=== PATIENT | female | born 1960 | race Caucasian/White ===

== ENCOUNTER → 2017-05-29 | Outpatient (CLI) | payer OTHER ==
--- NOTE | 2017-05-29 13:25 | REP ---
Digital diagnostic unilateral right breast mammography with CAD and focused right breast sonography: History: Palpable lump 1/2 cm firm at 3 o'clock position found on clinical breast examination. Comparison mammography June 07, 2016, June 24, 2015 and May 13, 2014. Mammographic findings: A skin marker is affixed to the skin at the site of the palpable lump. Routine views of the right breast are augmented by magnified focal spot compression CC, MLO and nonmagnified true ML views. These demonstrate a somewhat spiculated soft tissue nodule at the site of the palpable lump in the right breast measuring 1.1 cm in diameter. The breast parenchyma is heterogeneously quite dense in a pattern which may inhibit the sensitivity of mammography. No microcalcification is seen. No other mass lesion is observed. No worrisome skin change. Sonographic findings: The right breast is examined at the site of the palpable lump at 9 o'clock in the right lateral mid breast. This shows a hypoechoic complex predominantly solid lesion measuring 8 x 7 x 8 mm located 6.5 cm from the nipple. There is internal Doppler flow. On some images, the lesion is taller than wide. There is minimal acoustic shadowing. Impression: BIRADS category 5 highly suspicious right breast mammogram. A spiculated mass lesion is seen at the site of the palpable lump at 9 o'clock in the right breast. Histologic sampling is recommended. Ultrasound-guided needle biopsy could be performed. BI-RADS/ACR category 5 mammogram. Highly suggestive of malignancy - appropriate action should be taken. Requires biopsy or surgical treatment. This mammogram was interpreted with the aid of an FDA-approved computer-aided detection system. The patient states she had a clinical breast exam in May 2017 The patient letter being requested is M4. Signed by Rafael Porras MD 05/29/2017 02:31 P
== END ==
LOC: M RAD 09:04
PROVIDERS: ATTEND Physician Assistant
DX: N63 Unspecified lump in breast (principal)

== ENCOUNTER 2017-06-20 11:40 | Outpatient (RCR) | payer OTHER | END 2017-07-11 | LOC: M PT 11:40 | PROVIDERS: ATTEND Surgery | DX: Z51.89 Encounter for other specified aftercare (principal); C50.512 Malignant neoplasm of lower-outer quadrant of left female breast ==

== ENCOUNTER → 2017-07-30 | Outpatient (CLI) | payer OTHER ==
--- NOTE | 2017-07-31 07:15 | RADONC ---
RADIATION ONCOLOGY CONSULTATION NOTE DATE: 07/30/2017 DIAGNOSIS: Right breast cancer STAGE: I A, [id number]. ECOG PERFORMANCE STATUS: 0. CONSULTATION NOTE: Ms. Zayas is a delightful, 57-year-old white female with the diagnosis of what appears to be a stage I A, [id number], well-differentiated infiltrating ductal carcinoma of the right breast who is presenting to us today status post lumpectomy and sentinel lymph node biopsy for consideration of postoperative radiation therapy for conservative breast management. HISTORY OF PRESENT ILLNESS: The patient was in the usual state of health until her primary care physician noticed a small lump in the upper outer quadrant of her right breast. The patient subsequently underwent a mammogram on 05/29/2017 which showed a highly suspicious spiculated lesion in the 9 o'clock position of the right breast. On 07/01/2017, the patient underwent lumpectomy and sentinel lymph node biopsy. Pathology revealed a 1.1 cm well-differentiated infiltrating ductal carcinoma. A total of 5 sentinel lymph nodes were sampled and were negative for malignancy. All margins of resection were negative. The tumor was estrogen receptor and progesterone receptor positive. Oncotype testing was done and a recurrence score result was 3. She is at a very low risk for distant recurrence. She is now presenting for consideration of postoperative radiation therapy for conservative breast management. PAST MEDICAL HISTORY: The patient's past medical history is positive for depression and anxiety. She also is perimenopausal. ALLERGIES: The patient is allergic to SULFA drugs. She is also allergic to LUNESTA. SOCIAL HISTORY: The patient does not smoke cigarettes. She drinks alcohol socially. FAMILY HISTORY: The patient's family history is positive for a mother with breast cancer and a paternal grandfather with pancreas cancer. REVIEW OF SYSTEMS: The patient's review of systems is positive for some anxiety as well as occasional depression, but is otherwise noncontributory. She denies standard review of systems. PHYSICAL EXAMINATION: The patient is a well-developed, well-nourished, 57-year-old woman in no acute distress. HEENT exam is normocephalic, atraumatic. Extraocular movements are intact. There is no palpable cervical, supraclavicular, infraclavicular, axillary, or inguinal lymphadenopathy present. Lungs are clear to auscultation and percussion. Heart has a regular rate and rhythm. Abdomen is benign with no hepatosplenomegaly, masses, or tenderness. Breast examination reveals no masses or discharge bilaterally. Skeletal examination reveals no tenderness to pressure or percussion of the bony skeleton. Extremities reveal no clubbing, cyanosis, or edema. Neurologic exam is grossly intact, as is the remainder of the physical examination. ASSESSMENT: Clearly, the patient is a candidate for external beam radiation therapy and I so informed her. I have discussed with the patient in detail the potential benefits as well as possible acute and chronic sequelae of external beam radiation therapy. We have discussed logistics of treatment planning, simulation and subsequent fractionated daily radiation treatments. I have scheduled the patient for the next available simulation slot and radiation treatments will begin subsequently. Thank you for allowing us to participate in the care of this very pleasant woman. If I could be of any further assistance or I could provide you with any information, please feel free to contact me anytime. As always warm regards. cc: Nadiya Gauthier MD, FACP Naz Contreras, MARK-C Andres Alonso MD [facility] [place] DIVISIONKarla
--- NOTE | 2017-09-11 07:51 | RADONC ---
RADIATION ONCOLOGY PROGRESS NOTE DATE: 09/09/2017 CHART NUMBER: [id number] Ms. Zayas is presently at a dose of 3600 cGy to her right breast and is tolerating treatments quite well at this point with no significant difficulties related to her radiation therapy other than some tenderness of the skin. REVIEW OF SYSTEMS: The patient's review of systems is positive for skin tenderness but is otherwise noncontributory. Denies nausea, vomiting, fevers, chills, night sweats, diplopia, headaches, anxiety or depression, anorexia, weight loss, visual disturbances, chest pain, urinary or bowel difficulties, bone pain, or neurological problems. PHYSICAL EXAMINATION: The patient's skin shows some erythema and tanning present, but overall is in good condition with no evidence of moist or dry desquamation. The remainder of her physical exam remains unchanged. Ms. Zayas is tolerating treatments quite well and radiation will continue as scheduled.
== END ==
LOC: M ONCR 08:56
PROVIDERS: ATTEND Radiology Radiation Oncology
DX: C50.919 Malignant neoplasm of unspecified site of unspecified female breast (principal)

== ENCOUNTER 2017-08-05 10:15 | Outpatient (RCR) | payer OTHER ==
--- NOTE | 2017-08-05 11:19 | RADONC ---
RADIATION ONCOLOGY SIMULATION NOTE DATE: 08/05/2017 CHART NUMBER: [id number] Ms. Zayas was taken to the CT scan for CT simulation of her right breast field. CT was accomplished without difficulty or discomfort. Radiation treatment planning is underway, and radiation treatments will begin subsequently. An immobilization device was created and will be used throughout the course of treatment. It was also created without difficulty or discomfort. I was physically present throughout the course of CT simulation.
== END 2017-08-10 ==
LOC: M ONCR 10:15
PROVIDERS: ATTEND Radiology Radiation Oncology
DX: C50.411 Malignant neoplasm of upper-outer quadrant of right female breast (principal)

== ENCOUNTER → 2017-08-05 | Outpatient (CLI) | payer OTHER | LOC: M RAD 10:04 | PROVIDERS: ATTEND Radiology Radiation Oncology | DX: C50.919 Malignant neoplasm of unspecified site of unspecified female breast (principal) ==

== ENCOUNTER → 2017-08-07 | Outpatient (REF) | payer OTHER | LOC: M SFHCADAM 10:24 | PROVIDERS: ATTEND Physician Assistant | DX: N92.0 Excessive and frequent menstruation with regular cycle (principal) ==

== ENCOUNTER → 2017-08-08 | Outpatient (CLI) | payer OTHER ==
--- NOTE | 2017-08-09 09:27 | DEXA ---
AP SPINE L1 - L4 0.792 -3.3 -2.1 LT FEMUR TOTAL 0.699 -2.4 -1.6 RT FEMUR TOTAL 0.635 -3.0 -2.1 TOTAL BODY TOTAL OTHER DUAL FEMUR FRAX* ASSESSMENT Risk factors: None done. 10 year probability of fracture Major osteoporotic fracture % Hip fracture % COMMENTS: There is osteoporosis of the spine. The density of the spine has decreased 1.0% since 06/24/2015. The density of the left hip has decreased 3.3% since 06/24/2015. The density of the right hip has decreased 4.2% since 06/24/2015. The decreased density of the spine does not represent a significant change. The decreased density of the left hip does represent a significant change. The decreased density of the right hip does represent a significant change. FOLLOW-UP: Recommendation for the next bone density exam: 2 years. MARTITA
== END ==
LOC: M WHC 10:52
PROVIDERS: ATTEND Internal Medicine Medical Oncology
DX: M85.9 Disorder of bone density and structure, unspecified (principal); Z79.899 Other long term (current) drug therapy

== ENCOUNTER 2017-09-11 14:04 | Outpatient (RCR) | payer OTHER ==
--- NOTE | 2017-09-18 06:20 | RADONC ---
RADIATION ONCOLOGY SIMULATION NOTE DATE: 09/16/2017 CHART NUMBER: [id number] Ms. Zayas was taken to the linear accelerator today for clinical setup of her electron beam right breast boost. Setup was accomplished without difficulty or discomfort. Radiation treatment planning is underway. An immobilization device will be used throughout the course of treatment and was constructed today. I was physically present throughout the course of simulation.
--- NOTE | 2017-09-18 06:29 | RADONC ---
RADIATION ONCOLOGY PROGRESS NOTE DATE: 09/16/2017 CHART NUMBER: [id number] Ms. Zayas is presently at a dose of 4500 cGy to her right breast and is tolerating treatments quite well at this point with no significant difficulties related to her radiation therapy other than skin discomfort, specifically in the inframammary region. REVIEW OF SYSTEMS: The patient's review of systems is noncontributory. Denies nausea, vomiting, fevers, chills, night sweats, diplopia, headaches, anxiety or depression, anorexia, weight loss, visual disturbances, chest pain, urinary or bowel difficulties, bone pain, or neurological problems. PHYSICAL EXAMINATION: The patient's skin shows erythema and tanning present throughout the treated field. In the inframammary area, there is a small area of moist desquamation. The remainder of physical exam remains unchanged. ASSESSMENT: The patient is tolerating her treatments fairly well. There is an area of desquamation, but she only has two fractions of radiation left to that area. She will then go on to the skin boost which is not in an area of desquamation. She has decided to continue with current therapy at this time without a break.
--- NOTE | 2017-09-24 08:00 | RADONC ---
RADIATION ONCOLOGY PROGRESS NOTE DATE: 09/23/2017 CHART NUMBER: [id number] Ms. Zayas is presently at a dose of 5460 cGy to her right breast primary site and is tolerating treatments quite well at this point with no complaints related to her radiation therapy. She is having no breast or bone pain. REVIEW OF SYSTEMS: The patient's review of systems is noncontributory. Denies nausea, vomiting, fevers, chills, night sweats, diplopia, headaches, anxiety or depression, anorexia, weight loss, visual disturbances, chest pain, urinary or bowel difficulties, bone pain, or neurological problems. PHYSICAL EXAMINATION: The patient's skin is in good condition with just a small area of desquamation in the inframammary region. The remainder of her physical exam remains unchanged. Ms. Zayas is tolerating treatments quite well and radiation will continue as scheduled.
--- NOTE | 2017-09-28 14:56 | RADONC ---
RADIATION ONCOLOGY TREATMENT SUMMARY DATE: 09/27/2017 CHART NUMBER: [id number]. DIAGNOSIS: Right breast cancer. STAGE: IA, [id number]. ECOG PERFORMANCE STATUS: Zero. TREATMENT SUMMARY: Ms. Zayas is a very pleasant, 57-year-old white female with the diagnosis of a stage IA, [id number], well-differentiated infiltrating ductal carcinoma of the right breast who presented to us for consideration of postoperative radiation therapy for conservative breast management. We treated the patient to the right breast for a total dose of 4860 cGy delivered in 27 fractions of 180 cGy each over 37 elapsed days from 08/12/2017 through 09/18/2017. The patient's right breast was treated on a linear accelerator utilizing a 6MV photon beam via medial and lateral tangential montemayor utilizing 3-D conformal technique. Following completion of 4860 cGy, the entire right breast, the primary site was boosted for an additional 1200 cGy delivered in 6 fractions of 200 cGy each from 09/19/2017 through 09/27/2017. The primary site boost was treated on a linear accelerator utilizing a 9MVE electron beam prescribed to the 90% isodose line via non phos technique. This brought the primary site to a total dose of 6060 cGy delivered in 33 fractions over 46 elapsed days from 08/12/2017 through 09/27/2017. Ms. Zayas tolerated her treatments quite well and was able complete therapy as prescribed without interruption. I have scheduled the patient to see me again in 1 month for further followup. She will also continue to be followed by her other physicians as well. cc: Nadiya Gauthier MD, FACP GEN Castano MD
== END 2017-10-10 ==
LOC: M ONCR 14:04
PROVIDERS: ATTEND Radiology Radiation Oncology
DX: C50.411 Malignant neoplasm of upper-outer quadrant of right female breast (principal)

== ENCOUNTER → 2018-06-30 | Outpatient (REF) | payer OTHER ==
[2018-06-30 12:09] LABS: TOTAL 25(OH) VITAMIN D 21.6 NG/ML (30.0-100.0)
[2018-06-30 12:21] LABS: CHOLESTEROL LEVEL 219 MG/DL (<200); FREE T4 0.83 NG/DL (0.76-1.46); HDL CHOLESTEROL 50 MG/DL (>40); LDL CHOLESTEROL 151.4 MG/DL (<100); NON-HDL-C 169 MG/DL; TRIGLYCERIDES LEVEL 88 MG/DL (<150)
== END ==
LOC: M LABDRAW1 10:48
DX: M81.0 Age-related osteoporosis without current pathological fracture (principal); Z13.220 Encounter for screening for lipoid disorders; C50.911 Malignant neoplasm of unspecified site of right female breast; E55.9 Vitamin D deficiency, unspecified
CPT/HCPCS: 84443

== ENCOUNTER → 2019-07-07 | Outpatient (REF) | payer OTHER ==
[~2019-07-07] MED LIST: ALEN70TA74 PO; CALC1TAB8 PO; CHOL100012 PO; LETR2.5T2 PO; SERT-138 PO; UNIS25TA3 PO; VITA400C67 PO
[2019-07-07 12:54] LABS: HEMATOCRIT 43.3 % (36.0-47.0); HEMOGLOBIN 13.8 g/dl (12.0-15.5); MEAN CORPUSCULAR HEMOGLOBIN 29.6 pg (27.0-33.0); MEAN CORPUSCULAR HGB CONC 31.9 g/dl (32.0-36.5); MEAN CORPUSCULAR VOLUME 92.9 fl (80.0-96.0); PLATELET COUNT, AUTOMATED 195 10^3/uL (150-450); RED BLOOD COUNT 4.66 10^6/uL (4.00-5.40); WHITE BLOOD COUNT 6.5 10^3/uL (4.0-10.0)
[2019-07-07 13:47] LABS: ALBUMIN 4.1 GM/DL (3.2-5.2); ALT/SGPT 20 U/L (12-78); BILIRUBIN,TOTAL 0.3 MG/DL (0.2-1.0); BLOOD UREA NITROGEN 24 MG/DL (7-18); CALCIUM LEVEL 9.5 MG/DL (8.8-10.2); CARBON DIOXIDE LEVEL 31 MEQ/L (21-32); CHLORIDE LEVEL 105 MEQ/L (98-107); CHOLESTEROL LEVEL 236 MG/DL (<200); CHOLESTEROL RISK RATIO 4.627 (<5); FREE T4 0.85 NG/DL (0.76-1.46); GLOMERULAR FILTRATION RATE > 60.0 (>45); GLUCOSE, FASTING 92 MG/DL (70-100); HDL CHOLESTEROL 51 MG/DL (>40); LDL CHOLESTEROL 157 MG/DL (<100); NON-HDL-C 185 MG/DL; POTASSIUM SERUM 4.3 MEQ/L (3.5-5.1); SODIUM LEVEL 142 MEQ/L (136-145); TOTAL 25(OH) VITAMIN D 33.2 NG/ML (30.0-100.0); TOTAL PROTEIN 7.4 GM/DL (6.4-8.2); TRIGLYCERIDES LEVEL 140 MG/DL (<150)
== END ==
LOC: M SFHCADAM 11:22
PROVIDERS: ATTEND Physician Assistant
DX: M81.0 Age-related osteoporosis without current pathological fracture (principal); C50.911 Malignant neoplasm of unspecified site of right female breast; F32.9 Major depressive disorder, single episode, unspecified; E78.5 Hyperlipidemia, unspecified

== ENCOUNTER → 2019-07-14 | Outpatient (CLI) | payer OTHER ==
[~2019-07-14] MED LIST changes: +ISOVUE-370 76% 100ML VIAL (Q9967) As Ordered ONE
--- NOTE | 2019-07-14 10:50 | REP ---
Soft-tissue neck CT study with IV contrast: History: Nodule. Firm, nontender, mobile, 1 cm nodule palpable on the right anterior cervical area. No comparison imaging. CT contrast dose: 75 mL of intravenous Isovue [address] technique: An opaque BB is affixed to the skin at the site of the palpable abnormality. Helical scanning is acquired. 3 mm axial images are generated and coronal and sagittal MPR images are generated. CT findings: The paranasal sinuses are clear. No intraorbital abnormality is seen. Visualized intracranial structures are unremarkable. No vascular abnormality is seen. There is no evidence of neck mass or adenopathy. There are normal anterior cervical lymph nodes bilaterally. Parotid and submandibular glands are normal and symmetric. Thyroid lobes are unremarkable. The lung apices show no abnormality. No bony destructive lesion is appreciated. There are degenerative disc disease changes in the cervical spine at C3-4 through C6-7. Impression: No neck mass or adenopathy seen. Electronically Signed by Rafael Porras MD 07/14/2019 01:43 P
== END ==
LOC: M RAD 07:02
PROVIDERS: ATTEND Physician Assistant
DX: R22.1 Localized swelling, mass and lump, neck (principal); M50.21 Other cervical disc displacement, high cervical region; M50.221 Other cervical disc displacement at C4-C5 level; M50.222 Other cervical disc displacement at C5-C6 level; M50.223 Other cervical disc displacement at C6-C7 level
CPT/HCPCS: 70491; Q9967

== ENCOUNTER → 2020-07-07 | Outpatient (REF) | payer OTHER ==
[~2020-07-07] MED LIST changes: +BENA25CA4 PO; -ISOVUE-370 76% 100ML VIAL (Q9967) As Ordered ONE
[2020-07-07 15:09] LABS: CHOLESTEROL RISK RATIO 4.625 (<5)
== END ==
LOC: M LABDRWAD 12:25
PROVIDERS: ATTEND Physician Assistant
DX: E78.5 Hyperlipidemia, unspecified (principal); C50.911 Malignant neoplasm of unspecified site of right female breast

== ENCOUNTER → 2021-07-05 | Outpatient (CLI) | payer OTHER ==
[~2021-07-05] MED LIST changes: -ALEN70TA74 PO; +ALEN70TA82 PO; +D31000TA2 PO; +ZOLO100T PO
[2021-07-05 16:46] LABS: BLOOD UREA NITROGEN 25 MG/DL (7-18); CREATININE FOR GFR 0.91 MG/DL (0.55-1.30); GLOMERULAR FILTRATION RATE > 60.0 (>45)
== END ==
LOC: M LAB 15:39
PROVIDERS: ATTEND Otolaryngology
DX: R22.1 Localized swelling, mass and lump, neck (principal)